=== PATIENT | male | born 1935 | race Caucasian/White ===

== ENCOUNTER 2017-03-08 00:44 | Inpatient (IN) | payer OTHER, MEDICAID ==
--- NOTE | 2017-03-08 01:17 | EDPHY ---
H & P Stated Complaint: nausea/sob from [facility] HPI/ROS: Chief Complaint: Nausea, hyperglycemia HPI: 81-year-old male with a history of dementia, coronary artery disease, type 2 diabetes presenting from [facility] [place] with nausea and difficulty breathing. Patient was noted to have a oxygen saturations in the 80s. He is tachypneic. Blood sugar was 300. He does have a most form indicating comfort measures only however family wanted him transferred for further care and evaluation. They are indicating that they would want antibiotics no other treatment. I have discussed with his who is his medical power of deputy attorney general. She would want IV fluids and antibiotics. She does not want intubation or CPR. Patient denies any complaints at this time. Denies any fevers or chills. He is oriented to place and does know who the president is, however he does not know the date. He states he never knows the date. No recent falls or injuries. Denies any nausea or vomiting. No chest pain. Denies any shortness of breath. ROS: 10 point Review of Systems is negative except as noted in the HPI. Physical Exam: Gen: Awake, Alert, mild distress HEENT: Nose: no rhinorrhea Eyes: PERRLA, EOMI Mouth: Moist mucosa Neck: Supple, no JVD Chest: nontender, diffuse wheezes with rales, oxygen saturations in the 80s on room air Heart: S1, S2 normal, no murmur, space tachycardic Abd: Soft, non-tender, no guarding Back: no CVA tenderness, no midline tenderness Ext: no edema, non-tender Skin: no rash Neuro: CN II-XII intact, Sensation grossly intact, Strength 5/5 in bilateral upper and lower extremities - Medical/Surgical History Hx Asthma: No Hx Chronic Respiratory Disease: Yes Hx Diabetes: Yes Hx Cardiac Disease: Yes Hx Renal Disease: No Hx Cirrhosis: No Hx Alcoholism: No Hx HIV/AIDS: No Hx Splenectomy or Spleen Trauma: No Other PMH: dementia, hypothyroid, dm 2, bph, hypertension, hypoxemia, gerd Constitutional: Initial Vital Signs Temperature (C) 36.4 C 03/08/17 00:49 Heart Rate 127 H 03/08/17 00:49 Respiratory Rate 24 H 03/08/17 00:49 Blood Pressure 125/94 H 03/08/17 00:49 O2 Sat (%) 88 L 03/08/17 00:49 O2 Delivery Mode Nasal Cannula O2 (L/minute) 4 Allergies/Adverse Reactions: No Known Allergies Allergy (Unverified 03/08/17 01:37) Medical Decision Making - Diagnostics Imaging Results: Chest x-ray shows right lower lobe infiltrate per my interpretation. Imaging: I viewed and interpreted images myself ED Course/Re-evaluation: 81-year-old male who is likely septic from a respiratory cause. He is hyperglycemic and tachypneic. He has diffuse rhonchi on his lung exam. He is tachycardic. I have discussed at length length with family. They do want antibiotics and hydration. Patient's lactate is noted 6.6. IV fluid bolus ordered. Antibiotics and cultures have been ordered. Waiting chest x-ray 0153 Chest x-ray shows right lower lobe infiltrate. IV fluids hanging. Antibiotics ordered. I have paged the hospitalist. Case discussed with Dr. Caal, he will admit to the step-down unit for further care. I have also ordered azithromycin IV as well. - Data Points Laboratory Results: Laboratory Results 03/08/17 00:55 03/08/17 00:55 03/08/17 03/08/17 03/08/17 01:49 01:11 00:55 WBC RBC Hgb Hct MCV MCH MCHC RDW Plt Count MPV Neut % (Auto) Lymph % (Auto) [place] % (Auto) Eos % (Auto) Baso % (Auto) Nucleat RBC Rel Count Absolute Neuts (auto) Absolute Lymphs (auto) Absolute Monos (auto) Absolute Eos (auto) Absolute Basos (auto) Absolute Nucleated RBC Immature Gran % Immature Gran # PT INR APTT VBG Lactic Acid 6.6 mmol/L H mmol/L (0.7-2.1) Sodium 139 mEq/L mEq/L (135-145) Potassium 4.5 mEq/L mEq/L (3.5-5.2) Chloride 97 mEq/L mEq/L (97-110) Carbon Dioxide 21 mEq/l L mEq/l (22-31) Anion Gap 21 mEq/L H mEq/L (8-16) BUN 19 mg/dL mg/dL (7-23) Creatinine 1.0 mg/dL mg/dL (0.7-1.3) Estimated GFR > 60 Glucose 311 mg/dL H mg/dL (70-100) Calcium 9.7 mg/dL mg/dL (8.5-10.4) Total Bilirubin 0.5 mg/dL mg/dL (0.1-1.4) Nasal Influenza A PCR Pending Nasal Influenza B PCR Pending 03/08/17 03/08/17 00:55 00:55 WBC 18.14 10^3/uL H 10^3/uL (3.80-9.50) RBC 5.07 10^6/uL 10^6/uL (4.40-6.38) Hgb 16.0 g/dL g/dL (13.7-17.5) Hct 45.4 % % (40.0-51.0) MCV 89.5 fL fL (81.5-99.8) MCH 31.6 pg pg (27.9-34.1) MCHC 35.2 g/dL g/dL (32.4-36.7) RDW 12.8 % % (11.5-15.2) Plt Count 358 10^3/uL 10^3/uL (150-400) MPV 10.2 fL fL (8.7-11.7) Neut % (Auto) 47.4 % % (39.3-74.2) Lymph % (Auto) 38.5 % % (15.0-45.0) [place] % (Auto) 7.5 % % (4.5-13.0) Eos % (Auto) 5.2 % % (0.6-7.6) Baso % (Auto) 0.9 % % (0.3-1.7) Nucleat RBC Rel Count 0.0 % % (0.0-0.2) Absolute Neuts (auto) 8.59 10^3/uL H 10^3/uL (1.70-6.50) Absolute Lymphs (auto) 6.98 10^3/uL H 10^3/uL (1.00-3.00) Absolute Monos (auto) 1.36 10^3/uL H 10^3/uL (0.30-0.80) Absolute Eos (auto) 0.95 10^3/uL H 10^3/uL (0.03-0.40) Absolute Basos (auto) 0.17 10^3/uL H 10^3/uL (0.02-0.10) Absolute Nucleated RBC 0.00 10^3/uL 10^3/uL (0-0.01) Immature Gran % 0.5 % % (0.0-1.1) Immature Gran # 0.09 10^3/uL 10^3/uL (0.00-0.10) PT 13.5 SEC SEC (12.0-15.0) INR 1.01 (0.83-1.16) APTT 31.2 SEC SEC (23.0-38.0) VBG Lactic Acid Sodium Potassium Chloride Carbon Dioxide Anion Gap BUN Creatinine Estimated GFR Glucose Calcium Total Bilirubin Nasal Influenza A PCR Nasal Influenza B PCR Medications Given: Discontinued Medications Sodium Chloride (Ns) 2,400 mls @ 4,800 mls/hr 30 ml/kg infuse over 30 min ( 2400 ml) IV EDNOW ONE PRN Reason: Protocol Stop: 03/08/17 02:01 Last Admin: 03/08/17 01:47 Dose: 2,400 mls Departure - Departure Disposition: [facility] Inpatient Acute Clinical Impression: Sepsis, Pneumonia Condition: Serious Referrals: Patient,NotPresent [Primary Care Provider] - As per Instructions
[2017-03-08 01:21] LABS: PLATELET COUNT 358 10^3/uL (150-400)
[2017-03-08] MEDS ORDERED: NS 2,400 ML IV ONE (01:32)
[2017-03-08] MEDS ORDERED: cefTRIAXone 1 GM in STERILE WATER INJ 10 ML IV ONE (01:32)
[2017-03-08 01:59] LABS: INR 1.01 (0.83-1.16); PROTIME(PATIENT) 13.5 SEC (12.0-15.0)
[2017-03-08] MEDS ORDERED: AZITHROMYCIN IV 500 MG in D5W 250 ML IV ONE (02:01)
[2017-03-08] MEDS ORDERED: ONDANSETRON 4 MG/2 ML VIAL IVP PRN (02:02)
[2017-03-08] MEDS ORDERED: ALBUTEROL 60 PUFFS/8 GM MDI IH PRN (02:02)
[2017-03-08] MEDS ORDERED: ONDANSETRON DISINTEGRATING 4 MG TAB PO PRN (02:02)
--- NOTE | 2017-03-08 03:12 | PDGENHP ---
History and Physical - Chief Complaint Hypoxia - History of Present Illness 81 yo M w/ CAD s/p CABG, COPD on 0.5-2 L/min O2 chronically, and DM brought to ED today due to hypoxia and hyperglycemia. Patient himself feels well and is only complaining of "chest congestion". He denies cough or shortness of breath. Upon arrival to the ED he was noted to be tachycardic, hypoxic, and hyperglycemic. Initial work-up notable for sepsis (elevated WBC, lactate) and CXR w/ R-sided infiltrate. Patient is being admitted for treatment of sepsis most likely 2/2 pneumonia. He is DNR with wish for comfort measures, but patient and are ok with fluids and antibiotics. History Information - Allergies/Home Medication List Allergies/Adverse Reactions: No Known Allergies Allergy (Unverified 03/08/17 01:37) I have personally reviewed and updated: family history, medical history - Past Medical History coronary artery disease, COPD, diabetes type 2 - Surgical History Reports: coronary bypass surgery - Family History Additional family history: Asked, denies Review of Systems Review of Systems: ROS: 10pt was reviewed & negative except for what was stated in HPI & below Physical Exam Physical Exam: Temp Pulse Resp BP Pulse Ox 36.4 C 84 24 H 125/36 H 95 03/08/17 00:49 03/08/17 02:30 03/08/17 02:30 03/08/17 02:30 03/08/17 02:30 O2 (L/minute) 4 Constitutional: no apparent distress, not in pain Eyes: PERRL, EOMI Ears, Nose, Mouth, Throat: moist mucous membranes, no oral mucosal ulcers Cardiovascular: regular rate and rhythym, systolic murmur, No edema Respiratory: no respiratory distress, inspiratory crackles (RLL), No expiratory wheeze Gastrointestinal: normoactive bowel sounds, soft, non-tender abdomen Skin: warm, normal color Neurologic: sensation intact bilaterally, No weakness Psychiatric: interacting appropriately, not anxious Lab Data & Imaging Review 03/08/17 00:55 03/08/17 00:55 WBC 18.14 10^3/uL (3.80-9.50) H 03/08/17 00:55 RBC 5.07 10^6/uL (4.40-6.38) 03/08/17 00:55 Hgb 16.0 g/dL (13.7-17.5) 03/08/17 00:55 Hct 45.4 % (40.0-51.0) 03/08/17 00:55 MCV 89.5 fL (81.5-99.8) 03/08/17 00:55 MCH 31.6 pg (27.9-34.1) 03/08/17 00:55 MCHC 35.2 g/dL (32.4-36.7) 03/08/17 00:55 RDW 12.8 % (11.5-15.2) 03/08/17 00:55 Plt Count 358 10^3/uL (150-400) 03/08/17 00:55 MPV 10.2 fL (8.7-11.7) 03/08/17 00:55 Neut % (Auto) 47.4 % (39.3-74.2) 03/08/17 00:55 Lymph % (Auto) 38.5 % (15.0-45.0) 03/08/17 00:55 Lyman % (Auto) 7.5 % (4.5-13.0) 03/08/17 00:55 Eos % (Auto) 5.2 % (0.6-7.6) 03/08/17 00:55 Baso % (Auto) 0.9 % (0.3-1.7) 03/08/17 00:55 Nucleat RBC Rel Count 0.0 % (0.0-0.2) 03/08/17 00:55 Absolute Neuts (auto) 8.59 10^3/uL (1.70-6.50) H 03/08/17 00:55 Absolute Lymphs (auto) 6.98 10^3/uL (1.00-3.00) H 03/08/17 00:55 Absolute Monos (auto) 1.36 10^3/uL (0.30-0.80) H 03/08/17 00:55 Absolute Eos (auto) 0.95 10^3/uL (0.03-0.40) H 03/08/17 00:55 Absolute Basos (auto) 0.17 10^3/uL (0.02-0.10) H 03/08/17 00:55 Absolute Nucleated RBC 0.00 10^3/uL (0-0.01) 03/08/17 00:55 Immature Gran % 0.5 % (0.0-1.1) 03/08/17 00:55 Immature Gran # 0.09 10^3/uL (0.00-0.10) 03/08/17 00:55 PT 13.5 SEC (12.0-15.0) 03/08/17 00:55 INR 1.01 (0.83-1.16) 03/08/17 00:55 APTT 31.2 SEC (23.0-38.0) 03/08/17 00:55 VBG Lactic Acid 4.5 mmol/L (0.7-2.1) H 03/08/17 02:48 Sodium 139 mEq/L (135-145) 03/08/17 00:55 Potassium 4.5 mEq/L (3.5-5.2) 03/08/17 00:55 Chloride 97 mEq/L (97-110) 03/08/17 00:55 Carbon Dioxide 21 mEq/l (22-31) L 03/08/17 00:55 Anion Gap 21 mEq/L (8-16) H 03/08/17 00:55 BUN 19 mg/dL (7-23) 03/08/17 00:55 Creatinine 1.0 mg/dL (0.7-1.3) 03/08/17 00:55 Estimated GFR > 60 03/08/17 00:55 Glucose 311 mg/dL (70-100) H 03/08/17 00:55 Calcium 9.7 mg/dL (8.5-10.4) 03/08/17 00:55 Total Bilirubin 0.5 mg/dL (0.1-1.4) 03/08/17 00:55 Nasal Influenza A PCR NEGATIVE FOR FLU A (NEGATIVE) 03/08/17 01:49 Nasal Influenza B PCR NEGATIVE FOR FLU B (NEGATIVE) 03/08/17 01:49 Assessment & Plan Assessment: 81 yo M w/ CAD, DM, and COPD presents with sepsis most likely 2/2 pneumonia. Plan: 1. Severe sepsis - Most likely 2/2 pneumonia noting hypoxia, R-sided infiltrate on CXR, and complaints of "chest congestion". 3/4 SIRS per HR, WBC, and RR, severe criteria met by lactate of 6.6 on arrival. Patient denies other infectious symptoms including headache, abdominal pain, dysuria, and diarrhea. Flu negative. - CTX/Azithro for CAP coverage - IVF, trend lactate, blood cultures 2. Hx CAD - s/p CABG in 2003 3. IDDM c/b hyperglycemia - Hyperglycemia likely related to acute infection. Controled with insulin glargine 10 u qD + oral agents at [facility]. - Standard SSI + insulin glargine 10 u qD 4. Acute on chronic HRF - Usually on 0.5-2 L/min O2; currently requiring 4L most likely 2/2 PNA. - IS ordered, wean O2 as able 5. COPD - On Spiriva Diet - Regular Code - DNR, MOST form reviewed Ppx - LMWH, low dose Dispo - Admit to inpatient status noting diagnosis of severe sepsis
--- NOTE | 2017-03-08 03:29 | PDMN ---
Medical Necessity Medical necessity: C/M review: est. > 2 [place] LOS for eval and TX of acute severe sepsis most likely to pneumonia, acute on chronic hypoxemic respiratory failure , hyperglycemia, requiring IV fluids, ongoing IV Ceftriaxone, oral azithromycin , pulse oximetry, new O2 requirement 4L/min. in SDU, comorbid history oc CAD S/ P CABG, IDDM, COPD on O2 0.5-2L/min chronically per H/P.
[2017-03-08 04:14] LABS: PLATELET COUNT 305 10^3/uL (150-400)
[2017-03-08] MEDS: IPRATROPIUM/ALBUTEROL 3 ML DEYVIAL IH PRN ×2 (04:55→09:55)
[2017-03-08] MEDS: ACETAMINOPHEN 325 MG TAB PO PRN ×2 (07:30→20:28)
[2017-03-08] MEDS: AZITHROMYCIN 250 MG TAB PO SCH (07:35)
[2017-03-08] MEDS: INSULIN LISPRO 100 UNIT/ML SC SCH ×3 (07:35→18:09)
[2017-03-08] MEDS: ENOXAPARIN 40 MG/0.4 ML SYR SC SCH (07:36)
[2017-03-08] MEDS: INSULIN GLARGINE 100 UNITS/ML UNIT SC SCH (07:57)
[2017-03-08] MEDS ORDERED: FUROSEMIDE 40 MG/4 ML VIAL IVP ONE (10:35)
--- NOTE | 2017-03-08 11:55 | GCON ---
[f rep st] CONSULTATION RENTAL CLERK TOOL AND EQUIPMENT CONSULTATION REASON FOR ADMISSION: Possible sepsis and pneumonia. HISTORY OF PRESENT ILLNESS: Mr. Hu is an extremely pleasant 81-year-old white male with an extensive past medical history, including chronic obstructive pulmonary disease for which he is oxyge n dependent, coronary artery disease, history of coronary artery bypass graft, diabetes. He was broug ht to the emergency room with complaints of breathlessness, hypoxemia. Apparently he had been complai leatha of chest congestion for several days. He denied any chest pain, pleuritic-type chest pain or an kay equivalent. No fever or night sweats. He was initially seen in the emergency room and again tr ansferred to the intensive care unit. He is do not resuscitate. REVIEW OF SYSTEMS: 10-point review of systems was performed and is negative except for what is state d in the HPI. PAST MEDICAL HISTORY: Again, significant for coronary artery disease, chronic obstructive pulmonary disease, diabetes. PAST SURGICAL HISTORY: He has had coronary bypass graft. ALLERGIES: No known allergies to medications. SOCIAL HISTORY: Previous heavy smoke, none recently. No significant alcohol use. Work history, wor ked in sales. He is . He has lived in [place] for a handful of years but is originally from [facility]. PHYSICAL EXAMINATION: VITAL SIGNS: Blood pressure 105/66, pulse is 126, respirations 27, temperatur e is 36.4, oxygen saturation 95% on 3 L. GENERAL: He is a thin, but well-developed, elderly white m katarina who is resting comfortably on nasal cannula oxygen. HEENT: Eyes are PERRLA, EOMI. Throat shows n o erythema nor tonsillar hypertrophy. NECK: Supple. There is no cervical adenopathy. HEART: Regu lar rate and rhythm with a 2/6 systolic murmur at the left sternal border without radiation. LUNGS: Diminished breath sounds with significant prolongation of the expiratory phase but there is no wheez e. ABDOMEN: Soft, nontender. Bowel sounds are present. EXTREMITIES: No clubbing, cyanosis, or ed ann marie. LABORATORY STUDIES: [place] [address], hemoglobin 14, hematocrit 41, platelet count is 305. INR 1.1. VBG, lactic acid is 4.5, sodium 137, potassium 5.0, chloride 102, CO2 is 17, BUN 19, creatinine 0.9, glucose is 353. BNP is elevated at 3350. Influenza A and B are negative. Chest x-ray shows bilateral alveolar opacifications consistent with pulmonary edema and possible pneu monia. IMPRESSION: 1. Acute respiratory failure secondary to pneumonia and pulmonary edema. 2. Pneumonia. 3. Sepsis. 4. History of coronary artery disease. 5. Diabetes with high blood sugars. 6. Chronic obstructive pulmonary disease with acute exacerbation. RECOMMENDATIONS: 1. Agree with gentle diuresis. 2. Agree with current nebulizer treatments. 3. Will hold supplemental steroids for now. 4. Agree with antibiotics using azithromycin. 5. Deep venous thrombosis and pulmonary embolus prophylaxis. 6. Stress ulcer prophylaxis. 7. Begin ambulation. /[id number]/MODL
--- NOTE | 2017-03-08 15:18 | ASMTCMCOM ---
CM Note CM Note Notes: Pt admitted with PNA, sepsis. Hx Alzheimer's dementia. On 0.5 to 2L Oxygen at baseline. Lives at [facility]. Anticipate return to when medically cleared for d/c. CM will continue to follow for any d/c needs. Date Signed: 03/08/2017 03:17 PM Electronically Signed By:RONNY Shelton
[2017-03-08] MEDS: IPRATROPIUM BROMIDE 0.5 MG/2.5 ML DEYVIAL IH SCH (16:57)
[2017-03-08] MEDS: LEVALBUTEROL 1.25 MG/3 ML DEYVIAL IH SCH ×2 (16:57→23:40)
[2017-03-08] MEDS: cefTRIAXone 1 GM in STERILE WATER INJ 10 ML IV SCH (20:28)
[2017-03-09] MEDS: IPRATROPIUM BROMIDE 0.5 MG/2.5 ML DEYVIAL IH SCH ×4 (01:02→17:21)
[2017-03-09] MEDS: LEVALBUTEROL 1.25 MG/3 ML DEYVIAL IH SCH ×4 (05:10→20:10)
[2017-03-09 05:41] LABS: PLATELET COUNT 300 10^3/uL (150-400)
[2017-03-09] MEDS: INSULIN LISPRO 100 UNIT/ML SC SCH ×3 (08:42→17:58)
[2017-03-09] MEDS: AZITHROMYCIN 250 MG TAB PO SCH (08:42)
[2017-03-09] MEDS: ENOXAPARIN 40 MG/0.4 ML SYR SC SCH (08:42)
[2017-03-09] MEDS: INSULIN GLARGINE 100 UNITS/ML UNIT SC SCH (08:43)
--- NOTE | 2017-03-09 09:07 | PDINTPN ---
Trucker Progress Note Assessment/Plan: Assessment/Plan: * Pneumonia-continue current antibiotics * Acute respiratory failure secondary to pneumonia, COPD and pulmonary edema- this is improved with diuresis -will chest x-ray * Coronary artery disease * Chronic obstructive pulmonary disease with acute exacerbation-improved -continue nebs * Coronary artery disease * Diabetes-blood sugar stable * PT/OT * Start ambulation Subjective: Conversant. Resting comfortably. Breathing is stable. Objective: Vital Signs Temp Pulse Resp BP Pulse Ox 36.8 C 124 H 27 H 134/73 H 96 03/09/17 07:51 03/09/17 07:51 03/09/17 07:51 03/09/17 07:51 03/09/17 07:51 Laboratory Results 03/09/17 05:15 03/09/17 05:15 03/08/17 03/09/17 03/10/17 05:59 05:59 05:59 Intake Total 2665 1880 Output Total 125 Balance 2665 1755 PT 13.5 SEC (12.0-15.0) 03/08/17 00:55 INR 1.01 (0.83-1.16) 03/08/17 00:55 - Time Spent With Patient Time Spent With Patient: 35 min of time spent with patient, over 1/2 involved with coordination of care or counseling Physical Exam - Physical Exam General Appearance: alert, no apparent distress EENT: PERRL/EOMI Neck: non-tender, full range of motion Respiratory: rhonchi (Few), prolonged expiration, No respiratory distress, No wheezing Cardiac/Chest: normal peripheral pulses, regular rate, rhythm Abdomen: normal bowel sounds, non-tender, soft Male Genitalia: deferred Rectal: deferred Skin: normal color, warm/dry Extremities: normal range of motion, non-tender, normal inspection, normal capillary refill Neuro/Psych: alert ICD10 Worksheet Patient Problems: Problems Problem Status Onset Pneumonia Acute Sepsis Acute
[2017-03-09] MEDS ORDERED: INSULIN GLARGINE 100 UNITS/ML UNIT SC SCH (09:34)
[2017-03-09] MEDS ORDERED: LEVOTHYROXINE 112 MCG TAB PO SCH (10:00)
[2017-03-09] MEDS: SENNOSIDES/DOCUSATE SODIUM TAB PO SCH (10:16)
[2017-03-09] MEDS: ASPIRIN 81 MG CHEWABLE TAB PO SCH (10:16)
--- NOTE | 2017-03-09 11:05 | WOCRNPDOC ---
WOCRN Advanced Assessment Note - Skin Integrity Problem, Advanced Assess Bilateral Buttock Dressing Type: Open to Air Exudate Amount: None Exudate Characteristic(s): None Integumentary Issue Intervention: Lotion/Cream Applied (nursing will apply dimethicone BID) Regine Wound Tissue: Blanching, Intact Skin Integrity Problem Comment: Received wound consult for reddened buttocks to r/o pressure injury. Blanching erythema noted on distal buttocks, extending onto scrotum. No wounds, skin intact throughout buttocks. No indication of pressure injury at this time, but patient is incontinent of both bladder and bowel which is a risk factor. Will have nursing apply dimethicone lotion BID to keep skin intact and protected form moisture.
[2017-03-09] MEDS: predniSONE 20 MG TAB PO SCH (11:20)
[2017-03-09] MEDS: LEVOTHYROXINE 112 MCG TAB PO SCH (11:20)
--- NOTE | 2017-03-09 15:46 | HOSPPROG ---
Hospitalist Progress Note Assessment/Plan: #. Sepsis - improving parameters. Continue to trend with treatment for pneumonia. #. Acute/chronic Hypoxic Resp Failure - baseline 1-2L. Continue scheduled nebulizer and add prednisone today as wheezing on exam. #. Pneumonia - treating as community acquired. Continue ceftriaxone and azithromycin. #. Lactic Acidosis - trending down. Repeat in AM. #. CAD - Hx CABG. I do not see that he is on statin therapy. Continue aspirin. #. HTN - suboptimal control. Add metoprolol tartrate BID. #. CKD3 - baseline 1.7. #. DM2 - increase Lantus to 20 as adding prednisone. A1c in AM. #. Hypothyroidism - continue levothyroxine. #. Bowel/Bladder - continue bowel regimen. #. DVT prophylaxis - lovenox. #. Dispo - patient lives at home with . May need SNF placement. Subjective: F/U respiratory failure. No acute complaints. Feels he is breathing better. Objective: Vital Signs Temp Pulse Resp BP Pulse Ox 36.8 C 122 H 25 H 134/73 H 96 03/09/17 07:51 03/09/17 12:17 03/09/17 12:17 03/09/17 07:51 03/09/17 12:17 Laboratory Results 03/09/17 05:15 03/09/17 05:15 03/08/17 03/09/17 03/10/17 05:59 05:59 05:59 Intake Total 2665 1880 Output Total 125 Balance 2665 1755 PT 13.5 SEC (12.0-15.0) 03/08/17 00:55 INR 1.01 (0.83-1.16) 03/08/17 00:55 - Physical Exam Constitutional: no apparent distress Cardiovascular: regular rate and rhythym, no murmur, rub, or gallop Respiratory: no respiratory distress, expiratory wheeze Gastrointestinal: normoactive bowel sounds, soft, non-tender abdomen Genitourinary: No bonner in urethra Skin: warm, normal color ICD10 Worksheet Patient Problems: Problems Problem Status Onset Pneumonia Acute Sepsis Acute
[2017-03-09] MEDS: metFORMIN HCL 850 MG TAB PO SCH (17:58)
[2017-03-09] MEDS: cefTRIAXone 1 GM in STERILE WATER INJ 10 ML IV SCH (21:24)
[2017-03-09] MEDS: METOPROLOL TARTRATE 25 MG TAB PO SCH (21:25)
[2017-03-09] MEDS: TAMSULOSIN HCL 0.4 MG CAP PO SCH (21:26)
[2017-03-10] MEDS: IPRATROPIUM BROMIDE 0.5 MG/2.5 ML DEYVIAL IH SCH ×4 (00:15→14:47)
[2017-03-10] MEDS: LEVALBUTEROL 1.25 MG/3 ML DEYVIAL IH SCH ×3 (05:15→14:46)
[2017-03-10 06:00] LABS: PLATELET COUNT 285 10^3/uL (150-400)
[2017-03-10] MEDS: LEVOTHYROXINE 112 MCG TAB PO SCH (06:10)
[2017-03-10] MEDS: AZITHROMYCIN 250 MG TAB PO SCH (08:32)
[2017-03-10] MEDS: SENNOSIDES/DOCUSATE SODIUM TAB PO SCH (08:32)
[2017-03-10] MEDS: INSULIN LISPRO 100 UNIT/ML SC SCH ×3 (08:32→18:09)
[2017-03-10] MEDS: metFORMIN HCL 850 MG TAB PO SCH ×2 (08:33→18:09)
[2017-03-10] MEDS: METOPROLOL TARTRATE 25 MG TAB PO SCH ×2 (08:33→21:30)
[2017-03-10] MEDS: ASPIRIN 81 MG CHEWABLE TAB PO SCH (08:33)
[2017-03-10] MEDS: ENOXAPARIN 40 MG/0.4 ML SYR SC SCH (08:33)
[2017-03-10] MEDS: predniSONE 20 MG TAB PO SCH (08:33)
[2017-03-10] MEDS ORDERED: INSULIN GLARGINE 100 UNITS/ML UNIT SC SCH (09:00)
--- NOTE | 2017-03-10 19:36 | HOSPPROG ---
Hospitalist Progress Note Assessment/Plan: #. Acute/chronic Hypoxic Resp Failure - baseline 1-2L. COPD exacerbation +/- PNA. Continue scheduled nebulizer. I added prednisone yesterday but I think we can stop at this time and follow closely as wheezing resolving on exam today (mild yesterday). #. Pneumonia - treating as community acquired. Continue ceftriaxone and azithromycin. #. Lactic Acidosis - trending down. No repeats ordered at this time. #. CAD - Hx CABG. I do not see that he is on statin therapy. Continue aspirin. #. HTN - suboptimal control. Better control with addition of metoprolol tartrate BID. We may want to continue this at discharge if tolerated. #. DM2 - uncontrolled with A1c of 8%. I'll reduce lantus back from 20 to 10 units daily as stopping prednisone but may need dose increase based upon A1c. Continue metformin at 850mg BID. #. Hypothyroidism - continue levothyroxine. #. Bowel/Bladder - continue bowel regimen. #. DVT prophylaxis - lovenox. #. Dispo - patient states that he lives at home with but outsole caser state he is a resident at [facility]. Likely could return in the next 1-2 days. Correction from yesterday's note: patient does not have CKD and baseline is WNL , not 1.7. Subjective: F/U hopxia. No acute events overnight. He states breathing easier today. Objective: Vital Signs Temp Pulse Resp BP Pulse Ox 36.4 C 111 H 16 105/64 95 03/10/17 16:00 03/10/17 16:00 03/10/17 16:00 03/10/17 16:00 03/10/17 16:00 Microbiology 03/08/17 12:40 Urine Culture - Final Unspecified Laboratory Results 03/10/17 05:44 03/10/17 05:44 03/09/17 03/10/17 03/11/17 05:59 05:59 05:59 Intake Total 1880 500 500 Output Total 125 Balance 1755 500 500 PT 13.5 SEC (12.0-15.0) 03/08/17 00:55 INR 1.01 (0.83-1.16) 03/08/17 00:55 - Physical Exam Constitutional: no apparent distress Cardiovascular: regular rate and rhythym, no murmur, rub, or gallop Respiratory: no respiratory distress, no rales or rhonchi, expiratory wheeze Gastrointestinal: normoactive bowel sounds, soft, non-tender abdomen Genitourinary: No bonner in urethra Psychiatric: interacting appropriately ICD10 Worksheet Patient Problems: Problems Problem Status Onset Pneumonia Acute Sepsis Acute
[2017-03-10] MEDS: cefTRIAXone 1 GM in STERILE WATER INJ 10 ML IV SCH (21:30)
[2017-03-10] MEDS: TAMSULOSIN HCL 0.4 MG CAP PO SCH (21:34)
[2017-03-11] MEDS: IPRATROPIUM BROMIDE 0.5 MG/2.5 ML DEYVIAL IH SCH ×5 (00:06→23:09)
[2017-03-11] MEDS: LEVALBUTEROL 1.25 MG/3 ML DEYVIAL IH SCH ×5 (00:06→23:09)
[2017-03-11 05:58] LABS: PLATELET COUNT 302 10^3/uL (150-400)
[2017-03-11] MEDS: LEVOTHYROXINE 112 MCG TAB PO SCH (06:58)
[2017-03-11] MEDS: INSULIN GLARGINE 100 UNITS/ML UNIT SC SCH (09:30)
[2017-03-11] MEDS: METOPROLOL TARTRATE 25 MG TAB PO SCH ×2 (09:31→20:57)
[2017-03-11] MEDS: AZITHROMYCIN 250 MG TAB PO SCH (09:31)
[2017-03-11] MEDS: metFORMIN HCL 850 MG TAB PO SCH ×2 (09:31→18:22)
[2017-03-11] MEDS: SENNOSIDES/DOCUSATE SODIUM TAB PO SCH (09:31)
[2017-03-11] MEDS: ASPIRIN 81 MG CHEWABLE TAB PO SCH (09:31)
[2017-03-11] MEDS: INSULIN LISPRO 100 UNIT/ML SC SCH ×3 (09:32→18:22)
[2017-03-11] MEDS: ENOXAPARIN 40 MG/0.4 ML SYR SC SCH (09:32)
[2017-03-11] MEDS ORDERED: NS 1,000 ML IV ONE (12:46)
--- NOTE | 2017-03-11 14:57 | ASMTCMCOM ---
CM Note CM Note Notes: Spoke to patient and son. Son would like patient to have rehab when he returns to [facility]. Patient has had 3 midnights at [facility] so would qualify in having rehab paid by Medicare. On discharge please order Pt, OT. Referral sent to [facility]. Date Signed: 03/11/2017 02:57 PM Electronically Signed By:Carol Etienne LCSW
--- NOTE | 2017-03-11 17:58 | HOSPPROG ---
Hospitalist Progress Note Assessment/Plan: # Acute/chronic Hypoxic Resp Failure - baseline 1-2L. COPD exacerbation complicated by PNA. CXR ( personally reviewed and interpreted) bilateral basilar infiltrates- oxygen saturations 95% on 2 L - Continue scheduled nebulizer - cont antibiotics # Sepsis 2/2 pneumonia (tachycardia and leukocytosis on admission) overall resolving # ZABRINA - creatinine bumped to 1.3 this morning suspect secondary to poor p. O. intake in the setting of acute illness - NS bolus now - recheck creatinine in a.m. # Pneumonia - treating as community acquired. Continue ceftriaxone and azithromycin. # Lactic Acidosis - anion gap resolved with IV fluids # CAD - Hx CABG-denies chest pain - Continue aspirin. # HTN - Better control with addition of metoprolol tartrate BID - continue this at discharge if tolerated. # DM2 - uncontrolled with A1c of 8%. - blood sugars ranging from 113-275 - continue Lantus - continue sliding scale insulin - continue holding metformin #. Hypothyroidism - continue levothyroxine. # Bowel/Bladder - continue bowel regimen. # DVT prophylaxis - lovenox. # Dispo - patient states that he lives at home with but family service caseworker state he is a resident at [facility].- can DC tomorrow if remains stable I have discussed the case with the RN- will give small fluid bolus and ask for PT OT eval Subjective: Denies shortness of breath Objective: Vital Signs Temp Pulse Resp BP Pulse Ox 36.9 C 101 H 18 117/65 96 03/11/17 16:00 03/11/17 17:00 03/11/17 17:00 03/11/17 16:00 03/11/17 17:00 Laboratory Results 03/11/17 05:30 03/11/17 05:30 03/10/17 03/11/17 03/12/17 05:59 05:59 05:59 Intake Total 500 500 Output Total 1 Balance 500 500 -1 PT 13.5 SEC (12.0-15.0) 03/08/17 00:55 INR 1.01 (0.83-1.16) 03/08/17 00:55 - Physical Exam Constitutional: appears nourished Eyes: anicteric sclera Ears, Nose, Mouth, Throat: moist mucous membranes Cardiovascular: regular rate and rhythym, systolic murmur Respiratory: no respiratory distress, reduced air movement, No expiratory wheeze Gastrointestinal: normoactive bowel sounds Genitourinary: no bladder fullness Skin: warm Musculoskeletal: No asymmetric calves Neurologic: AAOx3 Psychiatric: interacting appropriately Lymph, Heme, Immunologic: no cervical LAD ICD10 Worksheet Patient Problems: Problems Problem Status Onset Pneumonia Acute Sepsis Acute
[2017-03-11] MEDS: cefTRIAXone 1 GM in STERILE WATER INJ 10 ML IV SCH (20:58)
[2017-03-12 05:14] LABS: PLATELET COUNT 356 10^3/uL (150-400)
[2017-03-12] MEDS: IPRATROPIUM BROMIDE 0.5 MG/2.5 ML DEYVIAL IH SCH ×2 (05:32→11:22)
[2017-03-12] MEDS: LEVALBUTEROL 1.25 MG/3 ML DEYVIAL IH SCH ×2 (05:32→11:22)
[2017-03-12 05:50] VITALS: O2SAT 97
[2017-03-12] MEDS: LEVOTHYROXINE 112 MCG TAB PO SCH (06:14)
[2017-03-12] MEDS: TAMSULOSIN HCL 0.4 MG CAP PO SCH (06:15)
[2017-03-12] MEDS: ACETAMINOPHEN 325 MG TAB PO PRN (06:16)
[2017-03-12 07:57] VITALS: BP 98/65
[2017-03-12 08:59] VITALS: TEMP 97.9
[2017-03-12] MEDS: ENOXAPARIN 40 MG/0.4 ML SYR SC SCH (09:06)
[2017-03-12] MEDS: METOPROLOL TARTRATE 25 MG TAB PO SCH (09:06)
[2017-03-12] MEDS: INSULIN LISPRO 100 UNIT/ML SC SCH (09:06)
[2017-03-12] MEDS: metFORMIN HCL 850 MG TAB PO SCH (09:06)
[2017-03-12] MEDS: ASPIRIN 81 MG CHEWABLE TAB PO SCH (09:06)
[2017-03-12] MEDS: INSULIN GLARGINE 100 UNITS/ML UNIT SC SCH (09:07)
[2017-03-12] MEDS: SENNOSIDES/DOCUSATE SODIUM TAB PO SCH (09:08)
[2017-03-12 11:29] VITALS: PULSE 100; RESP 16
--- NOTE | 2017-03-12 11:56 | PDIAF ---
- Diagnosis Diagnosis: pneumonia Code Status: Do Not Resuscitate - Medication Management Discharge Medications: Medications to Continue on Transfer Aspirin [Aspirin 81mg (*)] 81 mg PO DAILY 03/08/17 [Last Taken 03/08/17] Insulin Glargine [Lantus 100 UNITS/ML (*)] 10 units SC DAILY 03/08/17 [Last Taken 03/08/17] Levothyroxine Sodium 112 mcg PO DAILY10 03/08/17 [Last Taken 03/08/17] Linagliptin [Tradjenta] 5 mg PO DAILY 03/08/17 [Last Taken 03/08/17] Sennosides/Docusate Sodium [SENEXON-S TABLET] 1 each PO DAILY 03/08/17 [Last Taken 03/08/17] Tamsulosin HCl 0.4 mg PO HS 03/08/17 [Last Taken 03/07/17] metFORMIN HCL [Glucophage 850 mg (*)] 850 mg PO BIDMEAL 03/08/17 [Last Taken 09:00] Acetaminophen [Tylenol 325mg (*)] 650 mg PO Q4HRS PRN tab 03/12/17 [Last Taken Unknown] Albuterol [Proventil Inhaler HFA (*)] 2 puffs IH Q4HRS PRN mdi 03/12/17 [Last Taken Unknown] Metoprolol Tartrate [Lopressor 25 mg (*)] 25 mg PO BID #0 tab 03/12/17 [Last Taken Unknown] levOFLOXACIN [levAQUIN (*)] 750 mg PO DAILY #2 tab 03/12/17 [Last Taken Unknown] Discharge Medications: Refer to the Discharge Home Medication list for PRN reason. - Orders Services needed: Registered Nurse, Physical Therapy, Occupational Therapy Diet Texture: Regular Texture Diet, [place] Thick Liquids, Meds Whole w/Liquids - Follow Up Care Current Providers and Referrals: Patient,NotPresent [Primary Care Provider] - As per Instructions
--- NOTE | 2017-03-12 13:02 | ASMTCMCOM ---
CM Note CM Note Notes: Patient is ready for d/c today. Spoke with [facility] re: patient needing PT/OT/rehabilitation director when he gets back to [facility]. [facility] is setting up wheelchair transport for patient. Transfer of Care summary was faxed to [facility]. lunchroom food service supervisor time is 14:00 (2:00 PM). Report number given to nurse Amin to call. CM will follow. Date Signed: 03/12/2017 01:01 PM Electronically Signed By:Kanchan Flanagan LCSW
--- NOTE | 2017-03-13 01:15 | GDS ---
[f rep st] DISCHARGE SUMMARY DISCHARGE DIAGNOSES: 1. Sepsis secondary to pneumonia. 2. Community-acquired pneumonia. 3. Hypertension. HISTORY OF PRESENT ILLNESS: This is an 81-year-old male, who presents to the hospital with weakness and shortness of breath. For details of the patient's initial presentation, please see the history a nd physical dated 03/08/2017. CONSULTATIVE SERVICES: Pulmonary/Critical Care. HOSPITAL COURSE: By issue: 1. Sepsis. Patient was admitted with acute findings of pneumonia with tachycardia and leukocytosis consistent with sepsis. He was initiated on fluid resuscitation, empiric antibiotics, and followed c losely in the intensive care unit. Patient has normalized vital signs on the day of disposition with resolved sepsis. 2. Community-acquired pneumonia. Confirmed on imaging studies. Patient was transitioned from IV an tibiotics to oral p.o. levofloxacin to complete 2 additional days treatment on the day of disposition . 3. Hypertension. Patient is being discharged on a new beta maryann to assist in elevation in his bl ood pressure noted during this hospital stay, in addition to his outpatient medication. MEDICATIONS AT THE TIME OF DISPOSITION: Please reference the med rec printed on 03/12/2017. FOLLOWUP APPOINTMENTS: With his primary care provider in the next 1-2 weeks for post disposition fol marga. I spent greater than 30 minutes in the planning and coordination of this discharge. /[id number]/MODL
== END 2017-03-12 14:20 | DRG 871 ==
LOC: EDUNIT# → F2N 03:42
PROVIDERS: ADMIT Student in an Organized Health Care Education/Training Program; ATTEND Hospitalist
DX: A41.9 Sepsis, unspecified organism (principal); J18.9 Pneumonia, unspecified organism; J96.20 Acute and chronic respiratory failure, unspecified whether with hypoxia or hypercapnia; E11.65 Type 2 diabetes mellitus with hyperglycemia; N17.9 Acute kidney failure, unspecified; E11.22 Type 2 diabetes mellitus with diabetic chronic kidney disease; I12.9 Hypertensive chronic kidney disease with stage 1 through stage 4 chronic kidney disease, or unspecified chronic kidney disease; N18.3 Chronic kidney disease, stage 3 (moderate); E87.2 Acidosis; J44.9 Chronic obstructive pulmonary disease, unspecified; E03.9 Hypothyroidism, unspecified; F03.90 Unspecified dementia, unspecified severity, without behavioral disturbance, psychotic disturbance, mood disturbance, and anxiety; N40.0 Benign prostatic hyperplasia without lower urinary tract symptoms; K21.9 Gastro-esophageal reflux disease without esophagitis; I25.10 Atherosclerotic heart disease of native coronary artery without angina pectoris; Z87.891 Personal history of nicotine dependence; Z79.4 Long term (current) use of insulin; Z95.1 Presence of aortocoronary bypass graft
CPT/HCPCS: 82308-90; 92526-GN; 92610-GN; 97162-GP; 97165-GO; 97530-GP; G8978-GP-CM; G8979-GP-CK; G8987-GO-CK; G8988-GO-CI; G8996-GN-CI; G8997-GN-CI; G8998-GN-CI; J0456; J0696; J1650; J1815; J1940; J2405; J7512

== ENCOUNTER 2017-03-13 10:38 | Inpatient (IN) | payer OTHER, MEDICAID ==
--- NOTE | 2017-03-13 10:45 | EDPHY ---
HPI/HX/ROS/PE/MDM Narrative: CHIEF COMPLAINT: Dyspnea HPI: The patient is an 81 y/o male with history of CAD post CABG, COPD on O2 chronically, and diabetes arriving via EMS from [facility] with increasing shortness of breath. He was admitted here 5 days ago for sepsis and pneumonia and treated with azithromycin then transitioned to oral Levaquin. He was discharged yesterday with plan to complete an additional 2 days of Levaquin. Since returning to [facility], staff reports worsening shortness of breath and placed him on a nonrebreather at 15lpm, which we have changed to 2lpm via nasal canula on arrival here. Upon my assessment, the patient says he feels "pretty good" with only slightly worse than normal dyspnea. He denies chest pain or any other complaints. REVIEW OF SYSTEMS: Aside from elements discussed in the HPI, a comprehensive 10-point review of systems was reviewed and is negative. PMH: Diabetes type 2, COPD, CAD, coronary bypass surgery, admission for sepsis and pneumonia 02/18/17 SOCIAL HISTORY: Currently residing at [facility]. . DNR wish for comfort measures per H&P 03/08/17. Prior medical records reviewed including admission and discharge notes from 03/08. PHYSICAL EXAM: General:Patient is alert, grunting "Eeeeee" with each exhalation. ENT:Eyes are normal to inspection. ENT inspection normal. Neck: Normal inspection. Full range of motion. Respiratory: Grunting, mildly tachypneic, scattered rhonchi throughout. Cardiovascular: Regular rate and rhythm. Strong peripheral pulses. Normal cap refill. Abdomen:The abdomen is nontender to palpation. There are no peritoneal signs. There are normal bowel sounds. Ecchymosis right lower abdominal wall. Back: Normal to inspection. No tenderness to palpation. Skin: Normal color. No rash. Warm and dry. Extremities: Normal appearance. Full range of motion. Neuro: Oriented x3. Normal motor function. Normal sensory function. ED Course: This is an 81 y/o male who returns to the ED less than 24 hours after discharge from the hospital for evaluation of increasing dyspnea. He was admitted for 4 days for sepsis secondary to pneumonia and discharged on PO Levaquin. He largely denies complaints to me and is maintaining normal SpO2 on his baseline 2lpm O2. Plan for IV, labs, EKG, chest x-ray. The 12 lead EKG was interpreted by myself. See hard copy and/or "tracemaster" electronic copy for interpretation. Patient is breathing through his mouth and his SpO2 is dropping into the high 80s. RN has replaced nasal cannula with NRB. Chest x-ray: improvement in pulmonary edema vs. pneumonia. Troponin elevated 2.440. Spoke with hospitalist service. Dr. Kline accepts admission. 1232: RN called me into the room urgently saying patient is now complaining of severe crushing chest pain. On reassessment, he initially tells me he has no chest pain, then says he does have chest pain. He is continuing to grunt on exhalation and is now diaphoretic. Otherwise EKG ordered. The 12 lead EKG was interpreted by myself. No obvious dramatic change from prior EKG. Interpretation limited by artifact. See hard copy and/or "tracemaster " electronic copy for interpretation. 1243: Consulted with Mara from [facility]. Dr. Marin will assess patient in the ED. 1250: 4mg IV morphine administered for pain. 1309: Consulted with Dr. Marin, day haul or farm charter bus driver. He evaluated patient here in the ED. Patient's advanced directives are comfort care measures, so Dr. Marin plans to complete a heparin drip and manage symptoms rather than catheterization. He would like an ICU admit. Updated hospitalist service. Critical care time spent by me, Dr. Dahl, exclusively with this patient was 45 minutes, exclusive of PA time and exclusive of procedures. The organ system at risk was cardiopulmonary. Time spent in serial assessments of the patient, discussion with patient's family, review of prior records, consideration of interventions, cardiology consultation, and review of EKGs and lab results. - Data Points Imaging Results: Imaging Impressions Chest X-Ray 03/13/17 10:47 Impression: Improvement: Pulmonary edema versus pneumonia. Imaging: I viewed and interpreted images myself Laboratory Results: Laboratory Results 03/13/17 10:50 03/13/17 10:50 03/13/17 03/13/17 03/13/17 10:50 10:50 10:50 WBC RBC Hgb Hct MCV MCH MCHC RDW Plt Count MPV Neut % (Auto) Lymph % (Auto) [place] % (Auto) Eos % (Auto) Baso % (Auto) Nucleat RBC Rel Count Absolute Neuts (auto) Absolute Lymphs (auto) Absolute Monos (auto) Absolute Eos (auto) Absolute Basos (auto) Absolute Nucleated RBC Immature Gran % Immature Gran # PT Pending INR Pending APTT Pending Sodium 141 mEq/L mEq/L (135-145) Potassium 4.7 mEq/L mEq/L (3.5-5.2) Chloride 104 mEq/L mEq/L (97-110) Carbon Dioxide 23 mEq/l mEq/l (22-31) Anion Gap 14 mEq/L mEq/L (8-16) BUN 39 mg/dL H mg/dL (7-23) Creatinine 1.1 mg/dL mg/dL (0.7-1.3) Estimated GFR > 60 Glucose 111 mg/dL H mg/dL (70-100) Calcium 9.2 mg/dL mg/dL (8.5-10.4) Troponin I 2.440 ng/mL H ng/mL (0.000-0.034) NT-Pro-B Natriuret Pep 76997 pg/mL H pg/mL (0-450) 03/13/17 10:50 WBC 11.62 10^3/uL H 10^3/uL (3.80-9.50) RBC 4.35 10^6/uL L 10^6/uL (4.40-6.38) Hgb 13.5 g/dL L g/dL (13.7-17.5) Hct 39.3 % L % (40.0-51.0) MCV 90.3 fL fL (81.5-99.8) MCH 31.0 pg pg (27.9-34.1) MCHC 34.4 g/dL g/dL (32.4-36.7) RDW 13.5 % % (11.5-15.2) Plt Count 323 10^3/uL 10^3/uL (150-400) MPV 10.0 fL fL (8.7-11.7) Neut % (Auto) 64.2 % % (39.3-74.2) Lymph % (Auto) 12.2 % L % (15.0-45.0) Surry % (Auto) 6.0 % % (4.5-13.0) Eos % (Auto) 16.4 % H % (0.6-7.6) Baso % (Auto) 0.6 % % (0.3-1.7) Nucleat RBC Rel Count 0.0 % % (0.0-0.2) Absolute Neuts (auto) 7.46 10^3/uL H 10^3/uL (1.70-6.50) Absolute Lymphs (auto) 1.42 10^3/uL 10^3/uL (1.00-3.00) Absolute Monos (auto) 0.70 10^3/uL 10^3/uL (0.30-0.80) Absolute Eos (auto) 1.90 10^3/uL H 10^3/uL (0.03-0.40) Absolute Basos (auto) 0.07 10^3/uL 10^3/uL (0.02-0.10) Absolute Nucleated RBC 0.00 10^3/uL 10^3/uL (0-0.01) Immature Gran % 0.6 % % (0.0-1.1) Immature Gran # 0.07 10^3/uL 10^3/uL (0.00-0.10) PT INR APTT Sodium Potassium Chloride Carbon Dioxide Anion Gap BUN Creatinine Estimated GFR Glucose Calcium Troponin I NT-Pro-B Natriuret Pep Medications Given: Discontinued Medications Sodium Chloride (Ns) 1,000 mls @ 0 mls/hr IV EDNOW ONE; Wide Open PRN Reason: Protocol Stop: 03/13/17 10:48 Last Admin: 03/13/17 10:53 Dose: 1,000 mls Morphine Sulfate (Morphine) 4 mg IVP EDNOW ONE Stop: 03/13/17 12:47 Last Admin: 03/13/17 12:53 Dose: 4 mg General Initial Vital Signs: Initial Vital Signs Temperature (C) 36.4 C 03/13/17 10:43 Heart Rate 97 03/13/17 10:43 Respiratory Rate 26 H 03/13/17 10:43 Blood Pressure 135/73 H 03/13/17 10:43 O2 Sat (%) 93 03/13/17 10:43 O2 Delivery Mode Oxymizer O2 (L/minute) 4 Allergies/Adverse Reactions: No Known Allergies Allergy (Verified 03/13/17 10:42) Home Medications: Medication Instructions Recorded Aspirin [Aspirin 81mg (*)] 81 mg PO DAILY 03/08/17 Insulin Glargine [Lantus 100 10 units SC DAILY 03/08/17 UNITS/ML (*)] Levothyroxine Sodium 112 mcg PO DAILY10 03/08/17 Sennosides/Docusate Sodium 1 each PO DAILY 03/08/17 [SENEXON-S TABLET] Tamsulosin HCl 0.4 mg PO HS 03/08/17 metFORMIN HCL [Glucophage 850 mg 850 mg PO BIDMEAL 03/08/17 (*)] Acetaminophen [Tylenol 325mg (*)] 650 mg PO Q4HRS PRN tab 03/12/17 Albuterol [Proventil Inhaler HFA 2 puffs IH Q4HRS PRN mdi 03/12/17 (*)] Metoprolol Tartrate [Lopressor 25 25 mg PO BID #0 tab 03/12/17 mg (*)] levOFLOXACIN [levAQUIN (*)] 750 mg PO DAILY #2 tab 03/12/17 Magnesium Hydroxide [Milk of 30 ml PO Q3D PRN 03/13/17 Magnesia] Ondansetron Odt [Zofran Odt 4 mg 4 mg PO Q4 PRN 03/13/17 (*)] Tiotropium [place] [Spiriva 1 each IH DAILY 03/13/17 Respimat] cycloSPORINE 0.05% [Restasis Opht 1 each EACHEYE BID PRN 03/13/17 Drops(*)] Departure - Departure Disposition: [facility] Inpatient Acute Clinical Impression: Elevated troponin, Non-STEMI (non-ST elevated myocardial infarction) Dyspnea Qualifiers: Dyspnea type: shortness of breath Qualified Code(s): R06.02 - Shortness of breath Condition: Fair Report Scribed for: Duke Dahl Report Scribed by: Marisa Fuentes Date of Report: 03/13/17 Time of Report: 10:55 Physician Review and Approval Statement: Portions of this note were transcribed by an ED scribe. I personally performed the history, physical exam, and medical decision making; and confirm the accuracy of the information in the transcribed note.
[2017-03-13] MEDS ORDERED: NS 1,000 ML IV ONE (10:47)
[2017-03-13 11:01] LABS: PLATELET COUNT 323 10^3/uL (150-400)
--- NOTE | 2017-03-13 11:36 | CPEKG ---
Heart Rate: 92 RR Interval: 652 P-R Interval: 184 QRSD Interval: 100 QT Interval: 340 QTC Interval: 421 P [place]: 60 QRS [place]: 194 T Wave [place]: 172 EKG Severity - ABNORMAL ECG - EKG Impression: SINUS RHYTHM EKG Impression: PROBABLE LEFT ATRIAL ABNORMALITY EKG Impression: LOW VOLTAGE WITH RIGHT AXIS DEVIATION EKG Impression: NONSPECIFIC T ABNORMALITIES, LATERAL LEADS Electronically Signed By: Duke Dahl 13-Mar-2017 14:46:20
[2017-03-13] MEDS ORDERED: HEPARIN 10,000 UNIT/10 ML MDV (1,000 UNIT/ML) IVP ONE (13:11)
[2017-03-13] MEDS ORDERED: HEPARIN/DEXTROSE 500 ML IV ONE (13:11)
[2017-03-13 13:35] LABS: INR 1.17 (0.83-1.16); PROTIME(PATIENT) 15.1 SEC (12.0-15.0)
--- NOTE | 2017-03-13 14:08 | GCON ---
[f rep st] CONSULTATION DATE OF CONSULTATION: 03/13/2017 REFERRING PHYSICIAN: Duke Dahl MD REASON FOR CONSULTATION: 1. Chest pain. 2. Elevated troponin. 3. History of CAD and prior CABG. HISTORY OF PRESENT ILLNESS: The patient is an 81-year-old male who was just discharged from the [facility] yesterday after a 5 day admission for community-acquired pneumonia and sepsis. He returns to [facility] emergency room today because of chest pain which began earlier today. He is unable to provide much detail as to the character and associated symptoms. He is laying on his side in the emergency room, moaning. He has a history of CAD with a prior 4 vessel CABG performed in [place] almost 15 yea rs ago. We do not have any details in our hospital or office records regarding his prior history. PAST MEDICAL HISTORY: In addition to his CAD and prior CABG, he has hypertension, type 2 diabetes, C OPD, and dementia. MEDICATIONS: Please refer to the electronic record. The only relevant cardiac medications are aspir in and metoprolol. ALLERGIES: No known drug allergies. FAMILY HISTORY: Noncontributory. SOCIAL HISTORY: He is . His son is with him in the emergency room today. He resides at [facility]. His visits him there regularly. For the most part, he is wheelchair bound. He does not smoke or consume alcohol. REVIEW OF SYSTEMS: Notable for the chest discomfort that prompted this hospital encounter. Otherwis e, a complete review is unobtainable. PHYSICAL EXAMINATION: VITAL SIGNS: Heart rate in the 90s with sinus rhythm on the monitor. Blood p ressure 127/96. O2 saturation 94% on 4 L of oxygen via an Oxymizer mask. GENERAL: This is an elder ly chronically ill-appearing male. HEAD AND NECK: No scleral icterus. Mucous membranes moist. Car otid pulses 2+ without bruits. CHEST: Lung escamilla clear bilaterally. CARDIAC: Regular rate and rh ythm with normal S1 and S2. No murmur or gallop appreciated. ABDOMEN: Soft, nontender, nondistende d, with normal bowel sounds. EXTREMITIES: 2+ pulses and trace lower extremity edema. LABORATORY STUDIES: CBC shows white blood cell count of 11.62, with hemoglobin and hematocrit of 13. 5 and 39.3. Platelet count 323,000. Sodium 141, potassium 4.7, BUN and creatinine 39 and 1.1. His BNP is 22,200. His troponin is 2.44. ECG: His ECG demonstrates normal sinus rhythm. He has no Q-waves or conduction system abnormalities . He has low voltage QRS complexes in the limb leads. Nonspecific low voltage to biphasic T-waves a cross the precordial leads. IMPRESSION: This is an 81-year-old male with a cardiac history including a previous 4 vessel coronar y bypass operation. He presents with recurrent midsternal chest discomfort. He is currently hemodyn amically stable. His troponin is elevated consistent with a [id number] elevation myocardial infa rction. His chest x-ray is consistent with early pulmonary edema. He does not demonstrate gross sig ns of volume overload. PLAN: I had a lengthy discussion with the son. The patient has a copy of his advanced directives wi th him today. The son emphasized that the family's approach at this point, is to focus on comfort. They do not want any invasive procedures. Therefore, he will be managed medically. We will start in travenous heparin. He will receive his usual beta maryann. We will add clopidogrel to his daily asp irin therapy. Serial cardiac enzymes will be checked. An echocardiogram will be performed to assess his left ventricular function. /[id number]/MODL
[2017-03-13] MEDS ORDERED: ONDANSETRON 4 MG/2 ML VIAL IVP PRN (14:24)
[2017-03-13] MEDS ORDERED: ACETAMINOPHEN 325 MG TAB PO PRN (14:24)
[2017-03-13] MEDS ORDERED: ONDANSETRON DISINTEGRATING 4 MG TAB PO PRN (14:24)
[2017-03-13] MEDS ORDERED: HEPARIN 10,000 UNIT/10 ML MDV (1,000 UNIT/ML) IVP PRN (14:29)
[2017-03-13] MEDS ORDERED: HEPARIN/DEXTROSE 500 ML IV SCH (14:30)
[2017-03-13] MEDS ORDERED: cycloSPORINE 0.05% 30 DROPERETTE/BOX EACHEYE PRN (14:31)
[2017-03-13] MEDS ORDERED: ALBUTEROL 60 PUFFS/8 GM MDI IH PRN (14:31)
--- NOTE | 2017-03-13 15:03 | GHP ---
[f rep st] HISTORY AND PHYSICAL DATE OF ADMISSION: 03/13/2017 CHIEF COMPLAINT: Chest pain. HISTORY OF PRESENT ILLNESS: This is an 81-year-old male with a history of coronary artery disease st atus post CABG and COPD, oxygen dependent, who presents after being discharged from the hospital for sepsis and pneumonia 24 hours earlier with complaints of discomfort in his chest. The patient had a 4-day hospitalization where he was treated for community-acquired pneumonia and sepsis. Had resoluti on of his vital sign abnormalities, was on his baseline oxygen, and returned home to complete his out patient oral antibiotics. The patient reports having an uneventful evening after disposition, taking dinner with his son, waking in the morning, and is unable to clearly describe the onset of symptoms, but developed substernal crushing chest pain which prompted the usp to bring the patient ba ck. In the ED he was treated for these symptoms. At the time of my evaluation, his chest pain had r esolved. He was denying any associated shortness of breath or worsening pulmonary symptoms. Denying any palpitations, neurologic symptoms, GI, or symptoms. PAST MEDICAL HISTORY: 1. Coronary artery disease status post CABG. 2. COPD, baseline 2 L oxygen dependent. 3. Diabetes type 2. SOCIAL HISTORY: Negative for tobacco, alcohol, or illicit drugs. FAMILY HISTORY: Positive for heart disease. ADVANCED DIRECTIVES: The patient is do not resuscitate. His son will be his medical decision maker. REVIEW OF SYSTEMS: A 10-point review of systems is negative with the exception of that reported in t he HPI. PHYSICAL EXAMINATION: VITAL SIGNS: Blood pressure is 115/57, heart rate 98, respiratory rate 19, sa turating 93% on 4 L, 36.4. GENERAL: This is a pleasant elderly male in no acute distress. HEENT: Notable for dry mucous membranes. The patient has a non-rebreather on. Eye exam is negative for any icterus. CARDIAC: Patient's heart sounds are distant, but regular. Systolic murmur is appreciated . PULMONARY: Diminished breath sounds bilaterally with no rales or rhonchi. GASTROINTESTINAL: Pos itive bowel sounds. ABDOMEN: Soft. MUSCULOSKELETAL: Negative for any lower extremity edema. SKIN : Negative for any rashes. NEUROLOGIC: He is alert and oriented x3. PSYCHIATRIC: He is pleasant a nd cooperative on interview and examination. DATA: White count 11.6, down from 16 at discharge, hematocrit 39.3, platelet count of 323. INR 1.17 . Creatinine of 1.1. BNP of 22,200, which is up from 3350 on the day of admission, 03/08/2017. Tro ponin is 2.44. Chest x-ray which I personally reviewed and interpreted, shows improvement in the yasmin ateral infiltrates seen on previous chest x-ray. EKG, which I personally reviewed and interpreted, s hows sinus rhythm, rightward axis deviation with ST depression in lead V5, nonspecific flattening V4 through 6. ASSESSMENT AND PLAN: This is an 81-year-old male with a history of coronary artery disease status po st coronary artery bypass graft, presents with non-ST elevation myocardial infarction. 1. Non-ST elevation myocardial infarction. Certainly high risk with known coronary artery disease a nd history of coronary artery bypass graft. Troponin is 2.4. The patient is chest pain free during m y evaluation. We will initiate a heparin drip and trend the patient's troponins and tracings in the ICU. The patient was seen by Cardiology and during both his discussion with Cardiology and myself, t he patient is not showing active interest in cardiac catheterization. Will monitor his vital signs a nd cardiac status overnight. Will continue his aspirin, beta maryann, and home medications. 2. Diabetes. Will hold the patient's metformin, cover with sliding scale while in the inpatient set ting. 3. Recent community-acquired pneumonia. Will complete the patient's course of antibiotics, which sh ould complete on . 4. Hypothyroidism. Will continue his thyroid replacement therapy. 5. Benign prostatic hypertrophy. Will continue his tamsulosin. 6. Chronic obstructive pulmonary disease. The patient is not wheezing on examination. Will continu e his chronic inhaled medications and follow clinically. 7. Prophylaxis on a heparin drip. DIET: Cardiac. DISPOSITION: I expect greater than 2 midnights as the patient is quite elderly presenting with non-S T elevation AL requiring heparin drip and cardiac monitoring. I discussed the case with the emergenc y room physician. Patient will be triaged to the ICU on a heparin drip. /[id number]/MODL
--- NOTE | 2017-03-13 16:43 | PDMN ---
Medical Necessity Medical necessity: Pt meets IP criteria per MD; est los >2 mn for eval/tx of NSTEMI; admit to ICU for further workup, cardiac monitoring, IV Heparin drip, IV pain meds & therapies; comorbid advanced age, CAD s/p CABG, COPD, diabetes, recent hospitalization for sepsis/pneumonia; per H&P & order 03/13/17
--- NOTE | 2017-03-13 18:57 | ECHO ---
[email or web address] [address] [address] Main: [phone] Fax: Transthoracic Echocardiogram Name: TREVIN SALINAS MR#: [id number] Study Date: 03/13/2017 Study Time: 02:10 PM Date of : 1935 Age: 81 year(s) Height: 170.2 cm (67 in.) Weight: 72.58 kg (160 lb.) BSA: 1.84 m2 Gender: Male Examination: Echo Indication: Shortness of breath, Abnormal EKG, NSTEMI Image Quality: Contrast: Requested by: Eduardo Marin BP: 103 mmHg/65 mmHg Heart Rate: Rhythm: Normal sinus rhythm with ectopy Indication: Shortness of breath, Abnormal EKG, NSTEMI Procedure Staff Moose Hunter: Jarret Cifuentes Reading Physician: Eduardo Marin Requesting Provider: Conclusions: Left ventricle upper limits of normal. Severely reduced systolic LV function. EF is 17 %. There is moderate to severe global hypokinesis, with an EF estimated at 15-20%. Moderate mitral valve leaflet calcification is present. Mild to moderate mitral regurgitation. There is moderate to severe calcification of the aortic valve. Aortic valve velocities most likely were underestimated due to poor LV function.. Trivial tricuspid valve regurgitation. No pericardial effusion. Measurements: Chambers Valvular Assessment AV/MV Valvular Assessment TV/PV Normal Normal Normal Name Value Range Name Value Range Name Value Range Ao Janneth (MM): 3.4 cm (2.2 cm-3.7 AV Vmax: 1.44 m/s (1 m/s-1.7 PV Vmax: 0.60 m/s (0.6 m/s-0.9 cm) m/s) m/s) IVSd (2D): 0.9 cm (0.6 cm-1.1 AV maxP mmHg ( - ) PV PGmax: 1 mmHg ( - ) cm) AV meanP mmHg ( - ) LVDd (2D): 5.6 cm (4.2 cm-5.9 LVOT Vmax: 0.52 m/s (0.7 m/s-1.1 cm) m/s) LVDs (2D): 5.2 cm (2.1 cm-4 MARIEL (Vmax): 1.1 cm2 ( - ) cm) MARIEL (VTI): 1.2 cm ( - ) LVPWd (2D): 1.0 cm (0.6 cm-1 MV E Vmax: 1.02 m/s ( - ) cm) MV maxP mmHg ( - ) LVOTd 2.0 cm 2.0 cm mm MV meanP mmHg ( - ) LVEF (BP): 17 % (>=55 %) MVA (Vmax): 1.6 m/s ( - ) Continued Measurements: Patient: TREVIN SALINAS Study Date: 03/13/2017 Page 1 of 2 02:10 PM Chambers Valvular Assessment AV/MV Name Value Name Value LADs Lon.2 cm MV Annulus: 3.0 cm LA Area: 21.4 cm2 MV E/E' Septal: 31.70 LA Volume: 72 ml MV VTI: 23.70 cm LA Volume Index: 39.1 ml/m2 MR ERO: 0.300 cm2 MR PISA radius: 6 mm MR Reg. Volume: 19 ml MR Reg. Fraction: 11 % Findings: Left Ventricle: Left ventricle upper limits of normal. Severely reduced systolic LV function. EF is 17 %. There is moderate to severe global hypokinesis, with an EF estimated at 15-20%. Right Ventricle: Normal size right ventricle. Normal RV function. Left Atrium: The left atrium is normal in size. Right Atrium: The right atrium is mildly dilated. Mitral Valve: Moderate mitral valve leaflet calcification is present. Mild to moderate mitral regurgitation. Aortic Valve: There is moderate to severe calcification of the aortic valve. Aortic valve velocities most likely were underestimated due to poor LV function.. Tricuspid Valve: The tricuspid valve appears normal. Trivial tricuspid valve regurgitation. Pulmonic Valve: The pulmonic valve is normal in appearance and function. Aorta: The aorta is normal. Pericardium: No pericardial effusion. (No Signature Object) Patient: TREVIN SALINAS Study Date: 03/13/2017 Page 2 of 2 02:10 PM [id number]
[2017-03-13 19:59] VITALS: TEMP 97.5
[2017-03-13 20:12] LABS: CREATINE KINASE 102 IU/L (0-224)
[2017-03-13] MEDS: METOPROLOL TARTRATE 25 MG TAB PO SCH (20:27)
[2017-03-13] MEDS ORDERED: TAMSULOSIN HCL 0.4 MG CAP PO SCH (21:00)
[2017-03-14 02:13] LABS: CREATINE KINASE 89 IU/L (0-224)
[2017-03-14 04:26] LABS: PLATELET COUNT 308 10^3/uL (150-400)
[2017-03-14 07:24] VITALS: BP 116/68; PULSE 96; RESP 15; O2SAT 95
[2017-03-14] MEDS: METOPROLOL TARTRATE 25 MG TAB PO SCH (07:35)
[2017-03-14] MEDS ORDERED: INSULIN GLARGINE 10 UNIT SC SCH (09:00)
[2017-03-14] MEDS ORDERED: Tiotropium Bromide [Spiriva Respimat] IH SCH (09:00)
[2017-03-14] MEDS ORDERED: SENNOSIDES/DOCUSATE SODIUM TAB PO SCH (09:00)
[2017-03-14] MEDS ORDERED: ASPIRIN 81 MG CHEWABLE TAB PO SCH (09:00)
[2017-03-14] MEDS ORDERED: INSULIN GLARGINE 100 UNITS/ML UNIT SC SCH (09:00)
[2017-03-14] MEDS ORDERED: LEVOTHYROXINE 112 MCG TAB PO SCH (10:00)
--- NOTE | 2017-03-14 10:32 | PDIAF ---
- Diagnosis Diagnosis: NSTEMI Code Status: Do Not Resuscitate - Medication Management Discharge Medications: Medications to Continue on Transfer Aspirin [Aspirin 81mg (*)] 81 mg PO DAILY 03/08/17 [Last Taken 03/13/17] Insulin Glargine [Lantus 100 UNITS/ML (*)] 10 units SC DAILY 03/08/17 [Last Taken 03/13/17] Levothyroxine Sodium 112 mcg PO DAILY10 03/08/17 [Last Taken 03/13/17] Sennosides/Docusate Sodium [SENEXON-S TABLET] 1 each PO DAILY 03/08/17 [Last Taken 03/13/17] Tamsulosin HCl 0.4 mg PO HS 03/08/17 [Last Taken 03/12/17] metFORMIN HCL [Glucophage 850 mg (*)] 850 mg PO BIDMEAL 03/08/17 [Last Taken ] Acetaminophen [Tylenol 325mg (*)] 650 mg PO Q4HRS PRN tab 03/12/17 [Last Taken Unknown] Albuterol [Proventil Inhaler HFA (*)] 2 puffs IH Q4HRS PRN mdi 03/12/17 [Last Taken Unknown] Metoprolol Tartrate [Lopressor 25 mg (*)] 25 mg PO BID #0 tab 03/12/17 [Last Taken 03/13/17] levOFLOXACIN [levAQUIN (*)] 750 mg PO DAILY #2 tab 03/12/17 [Last Taken 03/13/17 ] Magnesium Hydroxide [Milk of Magnesia] 30 ml PO Q3D PRN 03/13/17 [Last Taken Unknown] Ondansetron Odt [Zofran Odt 4 mg (*)] 4 mg PO Q4 PRN 03/13/17 [Last Taken ] Tiotropium Martin [Spiriva Respimat] 1 each IH DAILY 03/13/17 [Last Taken 03/13] cycloSPORINE 0.05% [Restasis Opht Drops(*)] 1 each EACHEYE BID PRN 03/13/17 [ Last Taken Unknown] Discharge Medications: Refer to the Discharge Home Medication list for PRN reason. - Orders Services needed: Registered Nurse, Certified Finger Waver, Master Motorcycle Mechanic Apprentice , Physical Therapy, Occupational Therapy - Follow Up Care Current Providers and Referrals: Patient,NotPresent [Unknown] - As per Instructions
--- NOTE | 2017-03-14 11:45 | ASMTCASEMG ---
Living Arrangements What is your living Answers: Alone arrangement? Who do you live with? Type Of Residence What kind of residence do Answers: Half-Way Facility you live in? Type of Residence Facility Name Notes: [facility] Discharge Plan Comments Coordination Status Comments Notes: CM spoke w/ Dr. Aguilar and CAMERON Stafford regarding d/c POC. Pt is a 81 y/o man admitted for a nstemi. CM met w/ pt and son for dispo planning. [facility] is [facility] Son reports that pt had [facility] in the past and was d/c from their services. Referral made to [facility]. Pt will d/c back to [facility]. Son is in discussion w/ his siblings about having pt come live w/ him. Isis will be in to speak w/ son about the financial. CM provided CAMERON Stafford w/ phone number to give report to [facility]. Transportation set up by [facility] [place] for 1:30PM-2PM. Family will go look at [facility] for future reference. CM available for changes. Plan: [facility] Date Signed: 03/14/2017 11:44 AM Electronically Signed By:HALLE Lloyd
[2017-03-14] MEDS: morphINE 10 MG/0.5 ML UDSYR PO PRN ×3 (14:02→17:23)
[2017-03-14] MEDS ORDERED: NITROGLYCERIN 0.4 MG BTL SL ONE (15:01)
--- NOTE | 2017-03-14 16:40 | GDS ---
[f rep st] DISCHARGE SUMMARY DISCHARGE DIAGNOSES: 1. Non-ST segment elevation myocardial infarction. 2. Diabetes. 3. Recent history of community-acquired pneumonia. 4. Hypothyroidism. 5. Benign prostatic hypertrophy. 6. Chronic obstructive pulmonary disease. 7. History of coronary artery disease, status post coronary artery bypass graft. HOSPITAL COURSE: This is an 81-year-old man who had been treated in this hospital for a community-ac quired pneumonia and sepsis, was readmitted the day after discharge. He was readmitted with chest pa in, found to have a significantly elevated troponin of 2.4. He was diagnosed with NSTEMI as well as likely new ischemic cardiomyopathy with EF of 17%. He also likely had severe versus critical aortic stenosis. He was seen by Cardiology. Through long discussions with him and his son, he would prefer to move toward comfort care. Because of that, no catheterization was pursued. I have spoken with jazmine santiago son, who was in contact with all of his family, including his ; they would like to be discharg ed at [facility] with hospice care. I think that is totally appropriate. They are considering mo ving him to his son's house. However, on discharge, he will return to [facility]. We have stoppe d his heparin drip, discontinued his IVs. Placed him on some of his medications which he was previou sly on with the goal of comfort. BILLING: I spent more than 30 minutes on the day of discharge, coordinating care. /[id number]/MODL
--- NOTE | 2017-03-15 15:19 | ASDISCHSUM ---
Discharge Information Plan Status:SNF Medically Cleared to Leave:03/13/2017 Discharge Date:03/14/2017 05:34 PM CM D/C Disposition: ADT D/C Disposition:Hospice Facility Projected Discharge Date:03/14/2017 11:00 AM Transportation at D/C: Discharge Delay Reason: Follow-Up Date:03/14/2017 11:00 AM Discharge Slot: Final Diagnosis: Placement Information Referral Type:*Hospice Referral ID:[id number] Provider Name:[facility] Address 1:[address] [address] Phone Number: Address 2: Fax Number: [facility]:[place] Selection Factors: State:[place] Referral Type:*Longterm/SNF Referral ID:[id number] Provider Name:[facility] Address 1:[address] Phone Number: Address 2: Fax Number: [facility]:[place] Selection Factors: State:[place] Patient Contact Information Contact Name:JACKIE Relationship: Address:[address] [address] Work Phone: City:[place] Alternate Phone: State/Zip Code:[place] [address] Email: Financial Information Financial Class: Primary Plan Desc:MEDICARE INPATIENT Primary Plan Number:[id number] Secondary Plan Desc:MEDICAID [place] Secondary Plan Number:[id number] Assessment Information [facility] Initial CM Assessment Living Arrangements What is your living Answers: Alone arrangement? Who do you live with? Type Of Residence What kind of residence do Answers: Intermediate Facility you live in? Type of Residence Facility Name Notes: [facility] Discharge Plan Comments Coordination Status Comments Notes: CM spoke w/ Dr. Aguilar and CAMERON Stafford regarding d/c POC. Pt is a 81 y/o man admitted for a nstemi. CM met w/ pt and son for dispo planning. Son is requesting a referral sent to [facility]. Son reports that pt had [facility] in the past and was d/c from their services. Referral made to [facility]. Pt will d/c back to [facility] and have [facility] start hospice. Son is in discussion w/ his siblings about having pt come live w/ him. Isis will be in to speak w/ son about the financial. provided CAMERON Stafford w/ phone number to give report to [facility]. Transportation set up by [facility] for 1:30PM-2PM. Family will go look at [facility] for future reference. CM available for changes. Plan[facility] Date Signed: 03/14/2017 11:44 AM Electronically Signed By:HALLE Lloyd Case Management Discharge Plan Note Case Management Discharge Discharge Order Complete? Answers: Yes Patient to Obtain Answers: Other Notes: [facility] Medications Transportation Arranged Answers: Other Notes: [facility] Transport will Pick (Date 03/14/2017 05:30 PM & Time) EMTALA Complete Answers: No Case Management Transport Answers: Yes Notes: Completed PCS form and a Form Complete copy is in pts chart Faxed Final Orders Answers: Yes Agency/Facility Transfer Answers: Yes Report Printed & Faxed to Receiving Agency Family Notified Answers: Yes Discharge Comments Notes: Family went to look at [facility]. Family requested make a referral to [facility] for Inpatient Hospice. [facility] was unable to send a sales representative business courses out today. [facility] arranged for a doc to doc. Dr. Aguilar conducted the doc to doc. It was determined that pt does not meet inpatient hospice level of care at this time. Family would like pt to d/c back to [facility] with [facility] hospice tonight. [facility] is able to start care tonight. Familys biggest concern is managing pts pain. Family would like comfort measures only and a do not admit to the hospital. CM arranged transportation with Isis at [facility] and the familys decision to go with [facility]. CM notified Antonio that family is going with [facility]. CM available for changes. Plan: [facility] with [facility] Date Signed: 03/14/2017 04:55 PM Electronically Signed By:HALLE Lloyd Intervention Information Intervention Type:*IM-Signed Date of Service:03/14/2017 12:59 PM Patient Type:Inpatient Staff Member:Wanda Lewis Hours: Discipline: Severity: Comment:
== END 2017-03-14 17:34 | disposition hospice, home (50) | DRG 280 ==
LOC: EDUNIT# → OBSVTOIN 13:14 → F2N 18:37 → F2W 21:33
PROVIDERS: ADMIT Hospitalist; ATTEND Hospitalist
DX: I21.4 Non-ST elevation (NSTEMI) myocardial infarction (principal); J18.9 Pneumonia, unspecified organism; I25.10 Atherosclerotic heart disease of native coronary artery without angina pectoris; J44.9 Chronic obstructive pulmonary disease, unspecified; E11.9 Type 2 diabetes mellitus without complications; E03.9 Hypothyroidism, unspecified; I10 Essential (primary) hypertension; I35.0 Nonrheumatic aortic (valve) stenosis; N40.0 Benign prostatic hyperplasia without lower urinary tract symptoms; Z99.81 Dependence on supplemental oxygen; Z95.1 Presence of aortocoronary bypass graft; Z99.3 Dependence on wheelchair
CPT/HCPCS: 85520-90; J1644; J1815